=== PATIENT | female | born 1955 | race Caucasian/White ===

== ENCOUNTER 2023-01-08 13:49 | Emergency (ER) | payer MEDICARE, OTHER ==
[2023-01-08] MEDS ORDERED: Ondansetron 4 MG/2 ML SDV IVPUSH ONE (14:39)
[2023-01-08] MEDS ORDERED: Sodium Chloride 0.9% 1,000 ML IV SCH (14:45)
[2023-01-08 15:05] LABS: BASOPHILS ABSOLUTE AUTO 0.04 K/uL (0.00-0.10); BASOPHILS PERCENT AUTO 0.5 % (0.1-1.3); EOSINOPHILS ABSOLUTE AUTO 0.33 K/uL (0.00-0.40); EOSINOPHILS PERCENT AUTO 4.4 % (0.0-5.4); HEMATOCRIT 32.1 % (34.3-46.0); IMMATURE GRAN ABSOLUTE AUTO 0.02 K/uL (0.00-0.23); IMMATURE GRAN PERCENT AUTO 0.3 % (0.0-0.7); LYMPHOCYTES ABSOLUTE AUTO 2.42 K/uL (0.8-3.3); LYMPHOCYTES PERCENT AUTO 32.4 % (11.4-47.7); MEAN CORPUSCULAR HEMOGLOBIN 31.8 pg (31.6-35.5); MEAN CORPUSCULAR HGB CONC 34.3 g/dL (31.6-35.5); MEAN CORPUSCULAR VOLUME 92.8 fL (81.4-99.0); MONOCYTES ABSOLUTE AUTO 0.61 K/uL (0.20-0.90); MONOCYTES PERCENT AUTO 8.2 % (3.3-12.6); NEUTROPHILS ABSOLUTE AUTO 4.05 K/uL (1.0-7.6); NEUTROPHILS PERCENT AUTO 54.2 % (40.0-78.1); PLATELET COUNT,PLT 278 K/uL (130-375); RED BLOOD CELL COUNT 3.46 M/uL (3.77-5.24); WHITE BLOOD CELL COUNT,WBC 7.5 K/uL (3.2-11.0)
[2023-01-08 15:15] LABS: BILIRUBIN,URINE NEGATIVE (NEGATIVE); COLOR,URINE YELLOW (YELLOW); GLUCOSE,URINE NEGATIVE (NEGATIVE); KETONES,URINE NEGATIVE (NEGATIVE); LEUKOCYTE ESTERASE,URINE TRACE (NEGATIVE); NITRITE,URINE NEGATIVE (NEGATIVE); OCCULT BLOOD,URINE TRACE-INTACT (NEGATIVE); PROTEIN,URINE NEGATIVE (NEGATIVE); UROBILINOGEN,URINE 0.2 EU/dL (0.2-1.0)
[2023-01-08] MEDS ORDERED: Sodium Chloride 0.9% 10 ML SDV FLUSH ONE (15:18)
[2023-01-08] MEDS ORDERED: Iopamidol 612 MG/ML 100 ML Bottle IV PRN (15:18)
[2023-01-08 15:24] LABS: PROTHROMBIN TIME 9.8 sec (9.2-10.6)
[2023-01-08 15:27] LABS: A/G RATIO 1.2 (1.2-2.2); ALANINE AMINOTRANSFERASE,ALT 36 U/L (12-78); ALBUMIN 3.5 g/dL (3.4-5.0); ALKALINE PHOSPHATASE 97 U/L (46-116); ASPARTATE AMNIOTRANSFERASE,AST 19 U/L (15-37); BILIRUBIN TOTAL 0.2 mg/dL (0.2-1.0); BLOOD UREA NITROGEN,BUN 23 mg/dL (7-18); CALCIUM 9.4 mg/dL (8.5-10.1); CARBON DIOXIDE,CO2 27 mmol/L (21-32); CHLORIDE,CL 104 mmol/L (100-108); CREATININE 0.7 mg/dL (0.6-1.0); ESTIMATED GFR 96 mL/min (>60); GLUCOSE RANDOM 118 mg/dL (74-106); POTASSIUM,K 3.8 mmol/L (3.6-5.2); PROTEIN TOTAL,TP 6.3 g/dL (6.4-8.2); SODIUM,NA 138 mmol/L (140-148)
[2023-01-08] MEDS ORDERED: Sodium Chloride 0.9% 100 ML IV SCH (15:30)
[2023-01-08 15:31] LABS: ANION GAP 10.8 mmol/L (5.0-14.0)
[2023-01-08 15:32] LABS: AMORPHOUS SEDIMENT,URINE MODERATE; APPEARANCE,URINE CLOUDY (CLEAR); BACTERIA,URINE FEW; EPITHELIAL CELLS,URINE FEW; MUCUS,URINE MODERATE; RBC,URINE 0-5 (0-5); WBC,URINE 0-5 (0-5)
== END 2023-01-08 18:31 | disposition home or self-care (01) ==
LOC: JP.ED 13:49
DX: K92.2 Gastrointestinal hemorrhage, unspecified (principal); Z88.6 Allergy status to analgesic agent; Z88.5 Allergy status to narcotic agent
CPT/HCPCS: 36415; 74177; 80053; 81001; 82272; 83605; 83690; 84145; 85025; 85610; 93010; 96360; 96361; 99283; 99284; J3490; J7030; Q9967

== ENCOUNTER 2023-03-21 06:21 | Day surgery (SDC) | payer MEDICARE ==
[2023-03-21] MEDS ORDERED: Midazolam 1 MG/ML 2 ML SDV ONE (06:36)
[2023-03-21] MEDS ORDERED: fentaNYL 100 MCG/2 ML SDV ONE (06:36)
[2023-03-21] MEDS ORDERED: Propofol 200 MG/20 ML SDV ONE (06:37)
[2023-03-21] MEDS ORDERED: Lactated Ringers 1,000 ML IV SCH (07:00)
== END 2023-03-21 08:57 | disposition home or self-care (01) ==
LOC: JP.SDS 06:21
PROVIDERS: ATTEND Student in an Organized Health Care Education/Training Program
DX: K29.50 Unspecified chronic gastritis without bleeding (principal); K26.9 Duodenal ulcer, unspecified as acute or chronic, without hemorrhage or perforation; F32.A Depression, unspecified; Z79.899 Other long term (current) drug therapy
CPT/HCPCS: J2250; J2704; J3010; J7120

== ENCOUNTER 2024-12-31 09:03 | Day surgery (SDC) | payer MEDICARE, OTHER ==
[2024-12-31] MEDS ORDERED: Midazolam 1 MG/ML 2 ML SDV ONE (09:27)
[2024-12-31] MEDS ORDERED: Propofol 200 MG/20 ML SDV ONE (09:27)
[2024-12-31] MEDS ORDERED: fentaNYL 100 MCG/2 ML SDV ONE (09:27)
[2024-12-31] MEDS: Lactated Ringers 1,000 ML IV SCH (09:42)
== END 2024-12-31 11:49 | disposition home or self-care (01) ==
LOC: JP.SDS 09:03
PROVIDERS: ATTEND Surgery
DX: Z12.11 Encounter for screening for malignant neoplasm of colon (principal); K63.89 Other specified diseases of intestine; K57.30 Diverticulosis of large intestine without perforation or abscess without bleeding; E66.9 Obesity, unspecified; Z88.5 Allergy status to narcotic agent
CPT/HCPCS: 00811; 45380; J2250; J2704; J3010; J7120; 88305